=== PATIENT | male | born 1995 | race Caucasian/White ===

== ENCOUNTER 2017-05-05 08:25 | Emergency (ER) | payer SELFPAY ==
[~2017-05-05] VITALS: Ht 172.7 cm; Wt 80.0 kg
[2017-05-05] MEDS ORDERED: OLANZAPINE 10 MG/VIAL IM STA (08:51)
[2017-05-05] MEDS ORDERED: SODIUM CHLORIDE 0.9% 1,000 ML IV ONE ×2 (08:51→11:17)
[2017-05-05 09:49] LABS: CLARITY URINE CLEAR (CLEAR); COLOR URINE YELLOW (YELLOW); KETONES URINE TRACE (NEGATIVE); LEUKOCYTE ESTERASE URINE NEGATIVE (NEGATIVE); NITRITE URINE NEGATIVE (NEGATIVE); OCCULT BLOOD URINE NEGATIVE (NEGATIVE); PROTEIN URINE NEGATIVE (NEGATIVE); SPECIFIC GRAVITY URINE 1.011 (1.005-1.030); UROBILINOGEN URINE 0.2 E.U./dL (0.2-1.0)
[2017-05-05 10:15] LABS: CHLORIDE 108 mEq/L (98-107)
[2017-05-05 10:21] LABS: *AMPHETAMINES SCREEN URINE PRESUMTIVE POSITIVE (NEGATIVE); *BARBITURATES SCREEN URINE NEGATIVE (NEGATIVE); *BENZODIAZEPINES SCREEN URINE NEGATIVE (NEGATIVE); *COCAINE SCREEN URINE NEGATIVE (NEGATIVE); CANNABINOID URINE SCREEN PRESUMTIVE POSITIVE (NEGATIVE); METHADONE URINE SCREEN NEGATIVE (NEGATIVE); OPIATES URINE SCREEN NEGATIVE (NEGATIVE); PHENCYCLIDINE URINE SCREEN NEGATIVE (NEGATIVE)
[2017-05-05 10:21] LABS: ETHANOL BLOOD < 10 mg/dL
[2017-05-05 10:23] LABS: BASOPHILS % 0.5 % (0.0-2.0); HEMATOCRIT. 41.5 % (42.0-52.0); HEMOGLOBIN. 14.4 g/dL (14.0-18.0); MEAN CORPUSCULAR HEMOGLOBIN 32.8 pg (28.0-32.0); MEAN CORPUSCULAR VOLUME 94.4 fL (80.0-94.0); MEAN PLATELET VOLUME 7.4 fl (7.4-10.4); MONOCYTES % 8.3 % (2.0-8.0); NEUTROPHILS % 75.2 % (40.0-76.0); PLATELET 269 x1000/uL (130-400); RED CELL DISTRIBUTION WIDTH 13.3 % (11.6-14.6)
[2017-05-05 10:36] LABS: CREATINE KINASE 1027 IU/L (39-308)
[2017-05-05 12:50] VITALS: BP 132/88
== END 2017-05-05 12:58 | disposition home or self-care (01) ==
LOC: ER 08:36
DX: R44.1 Visual hallucinations (principal); M62.82 Rhabdomyolysis; E87.6 Hypokalemia; F15.10 Other stimulant abuse, uncomplicated; F12.10 Cannabis abuse, uncomplicated; Z59.0 Homelessness
CPT/HCPCS: 36415; 80053; 80305; 81003; 82550; 85025; 96360; 96361; 96372; 99285; G0482; J3490; J7030; Z7610; 99284